=== PATIENT | female | born 1985 | race Two or more races ===

== ENCOUNTER 2019-11-03 17:07 | Inpatient (IN) | payer OTHER ==
[~2019-11-03] VITALS: Ht 30.5 cm; Wt 65.3 kg
[2019-11-03] MEDS ORDERED: PRENATAL 19 TA1 EACH PO (18:33)
[2019-11-05] MEDS ORDERED: KEFLEX500 MG PO (13:36)
== END 2019-11-05 14:50 | disposition home or self-care (01) | DRG 833 ==
LOC: LDR 17:07 → OB/GYN 11-04 14:22
PROVIDERS: ADMIT Obstetrics & Gynecology; ATTEND Obstetrics & Gynecology
PROC: 4A0HXFZ Measurement of Products of Conception, Cardiac Rhythm, External Approach (ICD-10-PCS; principal; 2019-11-03)
DX: O47.03 False labor before 37 completed weeks of gestation, third trimester (principal)

== ENCOUNTER 2019-12-04 09:38 | Inpatient (IN) | payer OTHER ==
[~2019-12-04] VITALS: Ht 154.9 cm; Wt 64.9 kg
[~2019-12-04 09:38] MED LIST: KEFLEX500 MG PO; PRENATAL 19 TA1 EACH PO
== END 2019-12-06 12:50 | disposition home or self-care (01) | DRG 807 ==
LOC: LDR 09:38 → OB/GYN 17:53
PROVIDERS: ADMIT Obstetrics & Gynecology; ATTEND Obstetrics & Gynecology
PROC: 10E0XZZ Delivery of Products of Conception, External Approach (ICD-10-PCS; principal; 2019-12-04)
PROC: 0HQ9XZZ Repair Perineum Skin, External Approach (ICD-10-PCS; 2019-12-04)
PROC: 4A1HXCZ Monitoring of Products of Conception, Cardiac Rate, External Approach (ICD-10-PCS; 2019-12-04)
PROC: 3E033VJ Introduction of Other Hormone into Peripheral Vein, Percutaneous Approach (ICD-10-PCS; 2019-12-04)
DX: O70.0 First degree perineal laceration during delivery (principal); Z37.0 Single live birth; Z3A.40 40 weeks gestation of pregnancy; Z20.828 Contact with and (suspected) exposure to other viral communicable diseases